=== PATIENT | male | born 1995 | race Caucasian/White ===

== ENCOUNTER 2018-05-05 19:19 | Emergency (ER) | payer OTHER ==
[~2018-05-05] VITALS: Ht 182.9 cm; Wt 156.3 kg
[2018-05-05 19:29] VITALS: BP 155/94
--- NOTE | 2018-05-05 19:32 | NUR ---
TO BED # 11 AMBULATORY , REPORT GIVEN TO HARESH PARKER.
--- NOTE | 2018-05-05 19:35 | NUR ---
PATIENT PRESENTS TO ED WITH RIGHT FOOT REDNESS AND SWELLING X1 DAY. PATIENT DENIES HITTING FOOT ON ANY HARD SURFACES. MOTHER STATES SHE NOTICED THE REDNESS AND SWELLING DURING PATIENTS SHOWER. PATIENT HAS BILATERAL BRUISING ON INNER KNEES. PT DENIES N/V/D; SKIN IS PINK/WARM/DRY; AAOX4; LUNGS CLEAR BL; HR EVEN AND REGULAR; PT DENIES ANY FEVER, CP, SOB, OR COUGH AT THIS TIME; PATIENT STATES PAIN OF 7/10 AT THIS TIME; VSS; PATIENT POSITIONED FOR COMFORT; PATIENT STATES HE WANTS TO STAND DUE TO PAIN. PATIENT REFUSES USE OF STATIONARY CHAIR OR WHEELCHAIR AT THIS TIME; ER MD MADE AWARE OF PT STATUS.
--- NOTE | 2018-05-05 19:50 | NUR ---
Everardo munguia in [facility] - 05/05/18 at [address] Mejias evaluating patient at bedside.
[2018-05-05] MEDS ORDERED: KETOROLAC 60 MG/2 ML VIAL IM ONE (20:20)
--- NOTE | 2018-05-05 21:09 | NUR ---
Dr. Mejias evaluating patient at bedside.
[2018-05-05 21:30] VITALS: BP 148/89
--- NOTE | 2018-05-05 21:30 | NUR ---
Patient discharged with v/s stable. Written and verbal after care instructions given and explained. Patient alert, oriented and verbalized understanding of instructions. Ambulatory with steady gait. All questions addressed prior to discharge. ID band removed. Patient advised to follow up with PMD. Rx of BACTRIM, KEFLEX, NORCO given. Patient educated on indication of medication including possible reaction and side effects. Opportunity to ask questions provided and answered.
== END 2018-05-05 21:30 | disposition home or self-care (01) ==
LOC: MED 19:19
DX: L03.115 Cellulitis of right lower limb (principal); M79.671 Pain in right foot
CPT/HCPCS: 96372; 99283; J1885